=== PATIENT | female | born 1985 | race Caucasian/White ===

== ENCOUNTER 2018-07-13 16:43 | Outpatient (CLI) | payer MEDICAID ==
[~2018-07-13] VITALS: Ht 144.8 cm; Wt 56.2 kg
[~2018-07-13 16:43] MED LIST: PREN1TAB33 PO
[2018-07-13 17:03] VITALS: BP 106/66; PULSE 71; RESP 18; Ht 144.8 cm; Wt 56.2 kg
--- NOTE | 2018-07-13 18:04 | PN ---
Triage Information Date/Time 07/13/2018 Reason for visit: Sent in because of a low baseline heart rate and possible macrosomia Weeks of Gestation 36 weeks plus /Para 3 para2 Diabetes: none Hypertention: none Objective Vital Signs Date Temp Pulse Resp B/P (MAP) Pulse Ox O2 O2 Flow FiO2 Time Delivery Rate 07/13/18 98.4 71 18 106/66 Room Air 17:03 (79) Heart Rate: 120's Heart Rate Comments Reactive but had low baseline Exam long and closed Results/Medications Imaging Results EFW of 3196 g. Normal biophysical profile. Disposition: Discharge Assessment/Plan Follow-up in clinic per routine PATTI PAYNE MD Jul 13, 2018 18:04
--- NOTE | 2018-07-13 18:28 | TRIAGE ---
OB Triage Datetime Report Generated by CPN: 07/13/2018 18:28 Datetime: 07/13/2018 18:00 Vaginal Exam Dilatation (cms): 0.0 Effacement (%): 0 Station: -3 Exam By: A GHUKASYAN Datetime: 07/13/2018 17:59 Labor Evaluation Frequency: occas Monitor Mode: External Duration (sec)2399: 60-100 Quality: Mild Pattern: Normal: <= 5 Contractions in 10 Minutes Resting Tone [place]: Relaxed Heart Rate FHR Baseline Rate: 115 Monitor Mode: External US Variability: Moderate 6-25 bpm Accelerations: 15X15 Decelerations: None Category: Category I Datetime: 07/13/2018 17:10 Assessment Type: Triage Maternal Assessment Level of Consciousness: Fully Conscious DTR's/Clonus: DTRs 2+; No Clonus Headache: Denies Blurred Vision: No Respiratory Effort: Unlabored; Regular Rhythm; Equal Expansion Breath Sounds, Left: Clear and Equal Breath Sounds, Right: Clear and Equal Nausea/Vomiting: Denies RUQ Epigastric Pain: Denies Lower Extremities Edema: None Degree: None Upper Extremities Edema: None Degree: None Facial Edema: None Fall Risk Assessment History of Falling: (0) No Secondary Diagnosis: (0) No Ambulatory Aid: (0) Bedrest/Nurse Assist IV Therapy: (0) No Gait: (0) Normal/Bedrest/Immobile Mental Status: (0) Oriented to Own Ability Fall Score: 0 Fall Risk Score Definition: No Risk: No action required Labor Evaluation Frequency: OCCAS Monitor Mode: External Duration (sec)2399: 40-70 Quality: Mild Pattern: Normal: <= 5 Contractions in 10 Minutes Resting Tone [place]: Relaxed Heart Rate FHR Baseline Rate: 120 Monitor Mode: External US Variability: Moderate 6-25 bpm Accelerations: 15X15 Decelerations: None Category: Category I Datetime: 07/13/2018 17:07 Time of Arrival: 07/13/2018 16:30 EGA: 36.3 Arrived By: Ambulatory Arrived From: Office Chief Complaint: AUDIBLE DECELS Movement: Present Contractions: Denies/Absent Rupture of Membranes: Denies Vaginal Bleeding: None Vaginal Discharge: Denies Recent Sexual Intercouse: Denies Abdominal Trauma: Not Applicable Patient Complaints: Other Time Provider Notified: 07/13/2018 18:00 Provider Notified: dr henriquez Initial Plan: [facility] AND [facility]ASS[facility]
== END 2018-07-13 18:21 | disposition home or self-care (01) ==
LOC: OBT 16:43 → L-D 16:44 → OBT 18:21
PROVIDERS: ATTEND Obstetrics & Gynecology
DX: O76 Abnormality in fetal heart rate and rhythm complicating labor and delivery (principal)
CPT/HCPCS: 76815; 76818; Z7500; G0463

== ENCOUNTER 2018-07-22 00:45 | Inpatient (IN) | payer MEDICAID ==
[~2018-07-22] VITALS: Ht 149.9 cm; Wt 71.8 kg
[2018-07-22 01:19] VITALS: BP 116/70; PULSE 68; RESP 16
[2018-07-22] MEDS ORDERED: LACTATED RINGER'S 1,000 ML IV PRN (01:32)
[2018-07-22] MEDS ORDERED: LACTATED RINGER'S 1,000 ML IV SCH (01:32)
--- NOTE | 2018-07-22 01:50 | TRIAGE ---
OB Triage Datetime Report Generated by CPN: 07/22/2018 01:50 Datetime: 07/22/2018 01:44 Time of Arrival: 07/22/2018 01:20 EGA: 37.5 Arrived By: Stretcher Arrived From: Home Datetime: 07/22/2018 01:36 Stage of : Labor Temperature Route: Oral Pain Assessment Pain Scale: 8 Pain Presence: Intermittent Pain Type: Contraction Pain Location: Abdomen; Perineum Pain Relief Measures: Comfort Measures Datetime: 07/22/2018 01:31 Assessment Type: Admission Assessment Maternal Assessment Level of Consciousness: Fully Conscious DTR's/Clonus: DTRs 2+; No Clonus Headache: Denies Blurred Vision: No Respiratory Effort: Unlabored; Regular Rhythm; Equal Expansion Breath Sounds, Left: Clear and Equal Breath Sounds, Right: Clear and Equal Nausea/Vomiting: Denies RUQ Epigastric Pain: Denies Lower Extremities Edema: None Degree: None Upper Extremities Edema: None Degree: None Facial Edema: None Fall Risk Assessment History of Falling: (0) No Secondary Diagnosis: (0) No Ambulatory Aid: (0) Bedrest/Nurse Assist IV Therapy: (0) No Gait: (0) Normal/Bedrest/Immobile Mental Status: (0) Oriented to Own Ability Fall Score: 0 Fall Risk Score Definition: No Risk: No action required Datetime: 07/22/2018 01:24 Stage of : OB Triage Datetime: 07/22/2018 01:19 Stage of : OB Triage Labor Evaluation Frequency: 2-3 Monitor Mode: External Quality: Moderate Pattern: Normal: <= 5 Contractions in 10 Minutes Resting Tone [place]: Relaxed Heart Rate FHR Baseline Rate: 130 Monitor Mode: External US FHR Baseline Changes: No Baseline Change Variability: Moderate 6-25 bpm Accelerations: 15X15 Decelerations: None Category: Category I Vaginal Exam Dilatation (cms): 8.0 Effacement (%): 100 Station: -2 Exam By: Luana ALFONSO RN Membrane Status: Intact Vaginal Bleeding: None Cervix, Consistency: Soft Cervix, Position: Midposition Presentation 'A': Cephalic Datetime: 07/22/2018 01:00 Time of Arrival: 07/22/2018 00:40 EGA: 37.5 Arrived By: Wheelchair Arrived From: Home Chief Complaint: c/o ucs and discharge Movement: Present Contractions: Regular Time Contractions Began: 07/21/2018 07:00 Contractions: q10 Rupture of Membranes: Denies Vaginal Bleeding: None Vaginal Discharge: Present Recent Sexual Intercouse: Denies Abdominal Trauma: Not Applicable Patient Complaints: Contractions Time Provider Notified: 07/22/2018 01:25 Provider Notified: Dr Baires Initial Plan: EFM,SVE Datetime: 07/13/2018 17:10 Fall Score: 0 Fall Risk Score Definition: No Risk: No action required Datetime: 07/13/2018 17:07 EGA: 36.3
[2018-07-22] MEDS ORDERED: OXYTOCIN 30 UNITS/LR 500 ML IV SCH ×2 (02:00)
[2018-07-22] MEDS ORDERED: BUTORPHANOL 2 MG INJ IV PRN (02:00)
[2018-07-22] MEDS ORDERED: OXYTOCIN 30 UNITS/LR 500 ML IV PRN ×2 (02:00→06:00)
[2018-07-22] MEDS ORDERED: CARBOPROST 250 MCG INJ IM PRN ×2 (02:00→06:00)
[2018-07-22] MEDS ORDERED: IBUPROFEN 600 MG TAB PO PRN (02:00)
[2018-07-22] MEDS ORDERED: METHYLERGONOVINE 0.2 MG INJ IM PRN ×2 (02:00→06:00)
[2018-07-22] MEDS ORDERED: MISOPROSTOL 200 MCG TAB PR PRN ×2 (02:00→06:00)
[2018-07-22] MEDS ORDERED: LIDOCAINE 1% (MPF) 30 ML INJ INJ PRN (02:00)
[2018-07-22] MEDS ORDERED: MINERAL OIL LIGHT 10 ML VIAL TOP ONE (02:00)
[2018-07-22] MEDS ORDERED: BUTORPHANOL 1 MG INJ IV PRN (02:00)
--- NOTE | 2018-07-22 04:03 | HP ---
Date/Time of Note Date/Time of Note DATE: 07/22/18 TIME: 03:56 OB - History Hx of Present Free Text/Dictation 33y.o at 37w5 in active labor with intact membrane. Initial VE 8/100/-2 EFM showed uc's 2-3min aprt CAT I tracing no PNR is available at present. GBS neg admitted for expectant management. Chief Complaint: uc's : 3 Para: 2 Spontaneous : 0 Therapeutic : 0 Care: Other Ultrasounds: Other Obstetrical Complications: None Past Family/Social History * Past Medical, Surgical, Family and Obstetric Histories reviewed from chart. Blood Type: O+ Rubella: immune RPR/VDRL: Negative GBS Status: Negative HBsAG: Negative OB Admission Exam Vital Signs Vital Signs Vital Signs Date Temp Pulse Resp B/P (MAP) Pulse Ox O2 O2 Flow FiO2 Time Delivery Rate 07/22/18 98.4 68 16 116/70 Room Air 01:19 (85) Physical Exam HEENT: WNL Heart: Rhythm Normal Lungs: Clear, Equal Abdomen: WNL Extremities: Normal Reflexes: Normal Cervical Dilatation: 8cm Effacement: 100% Station: -2 Membranes: Intact Amniotic Fluid: Unevaluable Heart Rate: 140's Accelerations: Accelerations Present Decelerations: No Decelerations Varibility: Moderate Contractions on Admission: < 5 Minutes Apart Intensity: Firm Last 72 hours Lab Results CBC & BMP 07/22/18 01:30 OB Assessment/Plan Reason for admission: active labor Other Assessment: IUP 37w6d Plan: Expectant Management PAVAN LECHUGA MD Jul 22, 2018 04:03
--- NOTE | 2018-07-22 04:05 | LDN ---
Date/Time of Note Date/Time of Note DATE: 07/22/18 TIME: 04:03 Delivery Summary of normal male Weeks of Gestation 37w6d Placenta Delivered: Spontaneously, Intact & Complete Meconium: none Episiotomy: No Perineal laceration: 0 Anesthesia type: None Estimated blood loss: 80 Sponge & Needle done & correct: Yes All needle counts correct: Yes Any foreign bodies felt in the: No Infant Delivery Information Sex Infant Sex: male Apgars 1 Minute: 9 5 Minute: 9 Suctioning Nose & mouth suctioned at tom: Yes Delee suction performed: Yes Umbilical Cord Umbilical cord with: 3 Vessels Cord presentations: no nuchal cord Cord Blood was obtained: Yes Mother & Baby Disposition Disposition Mom & Baby to Maternity; Good: Yes Mom transferred to: Other Baby to NICU: No PAVAN LECHUGA MD Jul 22, 2018 04:05
[2018-07-22] MEDS ORDERED: WITCH HAZEL/GLYCERIN PAD PR PRN (06:00)
[2018-07-22] MEDS ORDERED: BENZOCAINE 20% 56 ML SPRAY TOP PRN (06:00)
[2018-07-22] MEDS ORDERED: ZOLPIDEM 5 MG TAB PO PRN (06:00)
[2018-07-22] MEDS ORDERED: LANOLIN HPA 1 PKT TOP PRN (06:00)
[2018-07-22] MEDS ORDERED: OXYCODONE/ASPIRIN (4.88/325) TAB PO PRN ×2 (06:00)
[2018-07-22] MEDS: IBUPROFEN 600 MG TAB PO SCH ×4 (06:21→23:57)
[2018-07-22 08:30] VITALS: BP 96/57; PULSE 103; RESP 19
[2018-07-22] MEDS: SENNA/DOCUSATE NA (8.6MG/50MG) TAB PO SCH ×2 (09:43→21:15)
[2018-07-22 12:00] VITALS: BP 100/56; PULSE 74; RESP 20
[2018-07-22 15:30] VITALS: BP 110/55; PULSE 79; RESP 16
[2018-07-22 20:00] VITALS: BP 95/51; PULSE 80; RESP 18
[2018-07-23 04:00] VITALS: BP 106/62; PULSE 84; RESP 17
[2018-07-23] MEDS: IBUPROFEN 600 MG TAB PO SCH ×4 (05:39→23:40)
[2018-07-23 08:00] VITALS: BP 88/51; PULSE 72; RESP 16
[2018-07-23] MEDS: SENNA/DOCUSATE NA (8.6MG/50MG) TAB PO SCH ×2 (11:21→21:37)
--- NOTE | 2018-07-23 13:56 | DS ---
Date/Time of Note Date/Time of Note Home today or next day DATE: 07/23/18 TIME: 13:55 Obstetrical Discharge Record Final Diagnosis Final Diagnosis: Term delivered Other Final Diagnosis Status post vaginal delivery Vaginal Delivery Obstetrical Delivery: Spontaneous Condition on Discharge Physical Assessment Last Vitals: See nurse's notes Voiding: Yes Bowel Movement: Yes Breast: Soft, non-tender, Filling Fundus: Firm Abdomen and Incision: Abdomen is soft with firm fundus Episiotomy: Perineum is clean Calf Tenderness: No Patient Condition: Good PATTI PAYNE MD Jul 23, 2018 13:56
--- NOTE | 2018-07-23 13:57 | PD.PPDC ---
CONSULTING PRACTICE MANAGER Discharge Instruction Provider Information Physician Information 34-year-old female had vaginal delivery Diagnosis [id number] Final Diagnosis: Pkuom6f Status post vaginal delivery Condition [id number] Patient Condition: Zaxzl9l Good Diet Zucbp9By Diet: Ryykx2f Resume Regular Diet Activity/Restrictions Whlmz6Cs Activity: Uazox4q Normal Activity May Shower [id number] Restrictions: Zoqcg3w Nothing in the Vagina [id number] Return to Work or School: Dclui3m September 05, 2018 Follow-up Follow-up with Physician: 2, 4, Week/Weeks (In clinic) Return to clinic for Blasd2Ne OB Instructions: Dkuuq3c Breast Tenderness Depression Comment: Pelvic rest for 6 weeks PATTI PAYNE MD Jul 23, 2018 13:57
[2018-07-23] MEDS ORDERED: IBUP-1542 PO (13:58)
[2018-07-23 16:00] VITALS: BP 98/54; PULSE 85; RESP 18
[2018-07-23 22:01] VITALS: BP 114/71; PULSE 93; RESP 18
[2018-07-24 04:15] VITALS: BP 103/54; PULSE 75; RESP 18
[2018-07-24] MEDS: IBUPROFEN 600 MG TAB PO SCH ×2 (05:48→11:20)
[2018-07-24 08:00] VITALS: BP 109/52; PULSE 70; RESP 18
[2018-07-24] MEDS ORDERED: DIPHTH/TET/ACEL PERTUSS (ADULT) 0.5 ML VIAL IM* ONE (09:00)
[2018-07-24] MEDS: SENNA/DOCUSATE NA (8.6MG/50MG) TAB PO SCH (11:20)
--- NOTE | 2018-07-25 14:43 | DELSUM ---
Delivery Summary A-C Datetime Report Generated by CPN: 07/25/2018 14:43 DELIVERY PERSONNEL Industrial Equipment Mechanic: Tersigni, Sonya MATERNAL INFORMATION Delivery Anesthesia: None Medications in Delivery: LR with 30 units of pitocin Delivery QBL (ml): 100 Placenta Cultured: No Maternal Complications: None LABOR SUMMARY EDC: 08/07/2018 00:00 No. Babies in Womb: 1 Attempted: No Labor Anesthesia: None LABOR INFORMATION Reason for Induction: Not Applicable Onset of Labor: 07/21/2018 07:00 Complete Dilatation: 07/22/2018 02:32 Oxytocin: N/A Group B Beta Strep: Negative Antibiotics # of Doses: 0 Steroids Given: None Reason Steroids Not Administered: Not Applicable MEMBRANES Membranes Rupture Method: Spontaneous Rupture of Membranes: 07/22/2018 02:31 Length of Rupture (hr): 0.18 Amniotic Fluid Color: Clear Amniotic Fluid Amount: Moderate Amniotic Fluid Odor: None STAGES OF LABOR Stage 1 hr: 19 Stage 1 min: 32 Stage 2 hr: 0 Stage 2 min: 10 Stage 3 hr: 0 Stage 3 min: 3 Total Time in Labor hr: 19 Total Time in Labor min: 45 VAGINAL DELIVERY Episiotomy: None Laceration Extension: N/A Laceration Type: None Laceration Repair: Not Applicable Initial Vag Sponge Count: 10 Final Vag Sponge Count: 10 Initial Vag Sharps Count: 1 Final Vag Sharps Count: 1 Sponge Count Correct: Yes; Vaginal Sweep Performed Sharps Count Correct: Yes BABY A INFORMATION Infant Delivery Date/Time: 07/22/2018 02:42 Method of Delivery: Vaginal Born in Route : No : N/A Forceps: N/A Vacuum Extraction: N/A Shoulder Dystocia : N/A SHOULDER DYSTOCIA BABY A Infant Delivery Date/Time: 07/22/2018 02:42 PRESENTATION/POSITION BABY A Presentation: Cephalic Cephalic Presentation: Vertex Vertex Position: Right Occipital Anterior Breech Presentation: N/A PLACENTA INFORMATION BABY A Placenta Delivery Time : 07/22/2018 02:45 Placenta Method of Delivery: Spontaneous Placenta Status: Delivered SCORES BABY A Heart Rate 1 min: >100 bpm Resp Effort 1 min: Good Cry Reflex Irritability 1 min: Cough/Sneeze/Pulls Away Muscle Tone 1 min: Active Motion Color 1 min: Body [place], Extremit Blue Resuscitation Effort 1 min: Tactile Stimulation SCORE 1 MIN: 9 Heart Rate 5 min: >100 bpm Resp Effort 5 min: Good Cry Reflex Irritability 5 min: Cough/Sneeze/Pulls Away Muscle Tone 5 min: Active Motion Color 5 min: Body [place], Extremit Blue Resuscitation Effort 5 min: Tactile Stimulation SCORE 5 MIN: 9 INFORMATION BABY A Gestational Age at Delivery: 37.5 Gestational Status: Early Term- 37- 38.6 Weeks Outcome : Liveborn Infant Condition : Stable Sex: Male IDENTIFICATION/MEDS BABY A ID Band Number: [id number] ID Band Location: Right Leg; Left Arm Sensor Applied: Yes Sensor Number: [id number] Sensor Location : Cord Clamp Vitamin K Given : Not Given Erythromycin Given: Not Given WEIGHT/LENGTH BABY A Birthweight (gm): 3275 Infant Weight (lb): 7 Weight (oz): 4 Length (in): 19.50 Infant Length (cm): 49.53 CORD INFORMATION BABY A No. Cord Vessels: 3 Nuchal Cord : N/A Cord Blood Taken: Yes Suction: Mouth; Nose ASSESSMENT BABY A Infant Complications: None Physical Findings at Delivery: Within Normal Limits Infant Respirations: Appears Normal Human Resource Intern/ALS Called : No Care By: Bethany REED Transferred To: Remains with Mother
== END 2018-07-24 13:00 | disposition home or self-care (01) | DRG 807 ==
LOC: L-D 00:45 → OBT 00:45 → L-D 01:20 → PP1 05:25
PROVIDERS: ADMIT Obstetrics & Gynecology; ATTEND Obstetrics & Gynecology
PROC: 10E0XZZ Delivery of Products of Conception, External Approach (ICD-10-PCS; principal; 2018-07-22)
DX: O80 Encounter for full-term uncomplicated delivery (principal); Z37.0 Single live birth; Z3A.37 37 weeks gestation of pregnancy
CPT/HCPCS: 81003; 85025; 85610; 85730; 86592; 86850; 86900; 86901; 87340; G0463; J2590; J7120